=== PATIENT | female | born 2000 | race Two or more races ===

== ENCOUNTER 2023-12-25 10:30 | Emergency (ER) | payer OTHER ==
[~2023-12-25] VITALS: Ht 149.9 cm; Wt 45.5 kg
[2023-12-25 10:32] VITALS: TEMP 98.3
[2023-12-25] MEDS: ACETAMINOPHEN 325 MG TABLET PO ONE (11:25)
[2023-12-25] MEDS: PERTUSS(ACELL),DIPH,TET/PF 0.5 ML SYRINGE [ADULT] IM. ONE (11:26)
[2023-12-25 12:02] VITALS: BP 120/60; PULSE 86; RESP 17
== END 2023-12-25 12:04 | disposition home or self-care (01) ==
LOC: EMS 10:41
DX: S61.304A Unspecified open wound of right ring finger with damage to nail, initial encounter (principal); W23.1XXA Caught, crushed, jammed, or pinched between stationary objects, initial encounter; Y93.89 Activity, other specified; Y92.89 Other specified places as the place of occurrence of the external cause; Y99.8 Other external cause status
CPT/HCPCS: 90471; 90715; 99283